=== PATIENT | female | born 1970 | race Caucasian/White ===

== ENCOUNTER 2017-04-13 05:53 | Observation (INO) | payer BC, OTHER ==
[2017-04-04 15:08] VITALS: BMI 26.0
--- NOTE | 2017-04-04 15:36 | PAT Medication Instructions ---
Service Date Apr 04, 2017. Current Home Medication List Cholecalciferol (Vitamin D3), 1 TAB PO Q2D Ibuprofen (Advil), 400 MG PO DAILY PRN for Pain or Fever Lorazepam (Ativan), 1 MG PO DAILY PRN for Anxiety/Agitation Metronidazole (Flagyl), 500 MG PO BID Norethindrone (Aygestin), 5 MG PO QPM Varenicline Tartrate (Chantix), 1 MG PO BID Medication Instructions For Your Scheduled Surgery - Hold the following medications the morning of surgery: Varenicline Tartrate (Chantix), 1 MG PO BID Cholecalciferol (Vitamin D3), 1 TAB PO Q2D Ibuprofen (Advil), 400 MG PO DAILY PRN for Pain or Fever (otherwise okay to continue per surgeon) - Take the following medications the morning of surgery with a sip of water: Lorazepam (Ativan), 1 MG PO DAILY PRN for Anxiety/Agitation (if needed) Metronidazole (Flagyl), 500 MG PO BID - Take the following medications as scheduled the night before surgery: Varenicline Tartrate (Chantix), 1 MG PO BID Norethindrone (Aygestin), 5 MG PO QPM Metronidazole (Flagyl), 500 MG PO BID Lorazepam (Ativan), 1 MG PO DAILY PRN for Anxiety/Agitation (if needed) If you have any questions please call us at [phone] or [phone] or [phone]
[2017-04-04 16:09] LABS: BASO % 0.3 %; BASO ABS # 0.02 K/uL (0-0.2); COMPLETE YES; EOS % 2.2 %; IG% 0.3 %; LYMPH % 33.2 %; LYMPH ABS # 2.54 K/uL (1.2-3.4); MEAN CELL VOLUME 98.3 fL (80-100); MEAN CORPUSCULAR HEMOGLOBIN 35.1 pg (25-34); MEAN CORPUSCULAR HGB CONC 35.8 g/dl (32-36); MEAN PLATELET VOLUME 9.9 fL (7.4-10.4); MONO % 9.8 %; NEUT % 54.2 %; PLATELET COUNT 254 K/uL (130-400); RED BLOOD COUNT 4.07 M/uL (4.2-5.4); WHITE BLOOD COUNT 7.66 K/uL (4.8-10.8)
[2017-04-04 16:16] LABS: BUN/CREATININE RATIO 20.1 (10-20); CALCIUM 8.7 mg/dl (8.5-10.1); CREATININE 0.92 mg/dl (0.60-1.20)
[2017-04-04 16:17] LABS: PROTHROMBIN TIME (PATIENT) 10.3 SECONDS (9.0-12.0)
[2017-04-13] VITALS (8 sets, daily range): BP systolic 107–132; BP diastolic 61–88; PULSE 61–90; TEMP 36.6–37.1; O2SAT 95–100; Ht 162.6 cm; Wt 70.2 kg
[~2017-04-13] VITALS: Ht 162.6 cm; Wt 70.2 kg
[~2017-04-13 05:53] MED LIST: ATV/1 PO; CHOL1TAB46 PO; IBUP-1050 PO; METR-163 PO; NORE5TAB5 PO; VAREPAK PO
[2017-04-13] MEDS ORDERED: LACTATED RINGER'S 1000ML 1,000 ML IV SCH ×2 (06:00)
[2017-04-13] MEDS ORDERED: CEFAZOLIN 2000 MG/60 ML D5W 50 ML IV SCH (06:00)
[2017-04-13] MEDS ORDERED: DEXAMETHASONE SOD INJ 4 MG/ML VIAL ONE (06:26)
[2017-04-13] MEDS ORDERED: ROCURONIUM BROMIDE 10 MG/ML 5 ML VIAL IV ONE ×2 (06:26→08:41)
[2017-04-13] MEDS ORDERED: ONDANSETRON INJ 2 MG/ML 2 ML VIAL ONE (06:26)
[2017-04-13] MEDS ORDERED: PROPOFOL IV EMULSION 10 MG/ML 20 ML VIAL IV ONE (06:26)
[2017-04-13] MEDS ORDERED: LIDOCAINE HCL 2% 2 ML VIAL (20MG/ML) ONE (06:26)
[2017-04-13] MEDS ORDERED: FENTANYL CITRATE INJ 50 MCG/1 ML 2 ML VIAL ONE ×2 (06:26→09:24)
[2017-04-13] MEDS ORDERED: MIDAZOLAM HCL 1 MG/ML 2ML VIAL ONE (06:26)
[2017-04-13] MEDS ORDERED: BUPIVACAINE/EPINEPHRINE 0.5% MPF 1:200,000 10 ML VIAL ONE (07:06)
[2017-04-13] MEDS ORDERED: SULFANILAMIDE 15% CR 120 GM TUBE ONE (07:08)
--- NOTE | 2017-04-13 07:26 | History & Physical Bridge Note ---
H&P Re-Evaluation Bridge Note: I have examined the patient, reviewed the History & Physical and in the interval since the performance of the History & Physical I have noted the following changes of clinical significance: No changes noted
[2017-04-13] MEDS ORDERED: EpHEDrine SULFATE INJ 50 MG/ML AMP IV PRN (08:00)
[2017-04-13] MEDS ORDERED: PHENYLEPHRINE 100MCG/ML 5ML SYR IV PRN (08:00)
[2017-04-13] MEDS ORDERED: METRONIDAZOLE 500MG / NSS IV SCH (08:00)
[2017-04-13] MEDS ORDERED: NURSING VERBAL MED ORDER ONE (08:00)
[2017-04-13] MEDS ORDERED: HYDROmorphone INJ 2 MG/ML SYR/VIAL IV PRN (08:00)
[2017-04-13] MEDS ORDERED: ATROPINE SULFATE 0.1 MG/ML 5ML SYR IV PRN (08:00)
[2017-04-13] MEDS ORDERED: ONDANSETRON INJ 2 MG/ML 2 ML VIAL IV PRN ×2 (08:00→10:00)
[2017-04-13] MEDS ORDERED: HYDROmorphone INJ 2 MG/ML SYR/VIAL ONE (08:14)
[2017-04-13] MEDS ORDERED: NEOSTIGMINE METHYLSULFATE 5 MG/5 ML SYR ONE (09:24)
[2017-04-13] MEDS ORDERED: GLYCOPYRROLATE INJ 0.2 MG/ML VIAL ONE (09:24)
[2017-04-13] MEDS ORDERED: FLOSEAL HEMOSTATIC MATRIX 5ML TOP ONE (09:39)
[2017-04-13] MEDS ORDERED: KETOROLAC TROMETHAMINE 30 MG/ML VIAL ONE (09:43)
[2017-04-13] MEDS ORDERED: BACITRACIN OINT 15 GM TUBE ONE (09:46)
[2017-04-13] MEDS ORDERED: D5W AND LACTATED RINGERS 1,000 ML IV SCH (09:51)
--- NOTE | 2017-04-13 09:58 | [facility] Post Operative Brief Note ---
Immediate Operative Summary Operative Date Apr 13, 2017. Pre-Operative Diagnosis Heavy menstral bleeding; dysmenorrhea, dyspareunia, adenomyosis Post-Operative Diagnosis Same as preop Procedure(s) Performed Exam Under Anesthesia; Transvaginal Hysterectomy; Bilateral Salpingectomy; Dumont Culdeplasty; cystoscopy Surgeon Dr. Perez Information Technology Program Manager Surgeon(s) Dr. Harmon Estimated Blood Loss 100 cc Findings Stage 1-2 uterine prolapse and cystocele Normal uterus, fallopian tubes and ovaries Specimens A: right fallopian tube B: left fallopian tube C: uterus and cervix Drains greenwood 100 ml Anesthesia GETA Complication(s) None Disposition Recovery Room / PACU
[2017-04-13] MEDS ORDERED: BISACODYL 10 MG SUPP PR PRN (10:00)
[2017-04-13] MEDS ORDERED: KETOROLAC TROMETHAMINE 15 MG/ML VIAL IV. PRN (10:00)
[2017-04-13] MEDS ORDERED: PROMETHAZINE HCL INJ 25 MG in SODIUM CHLORIDE 0.9% 50ML 50 ML IV PRN (10:00)
[2017-04-13] MEDS ORDERED: MAGNESIUM HYDROXIDE SUSP 30 ML UDC PO PRN (10:00)
[2017-04-13] MEDS ORDERED: MEPERIDINE HCL 50 MG/ML CARP IV PRN ×2 (10:00)
[2017-04-13] MEDS ORDERED: SENNA 8.6 MG TAB PO PRN (10:00)
[2017-04-13] MEDS ORDERED: MTR600X PO (10:49)
[2017-04-13] MEDS ORDERED: METO-157 PO (10:49)
[2017-04-13] MEDS ORDERED: OXYC-57 PO (10:49)
--- NOTE | 2017-04-13 10:52 | Discharge Instructions ---
Discharge Instructions Date of Service Apr 13, 2017. Admission Reason for Admission: Heavy Periods, Dysmenorrhea Discharge Discharge Diagnosis / Problem: Vaginal hysterectomy, bilateral salpingectomy, Cystoscopy Discharge Goals Goal(s): Routine recovery after surgery Activity Recommendations Activity Limitations: as noted below Lifting Limitations: no more than 10 pounds Exercise/Sports Limitations: until after follow-up appointment May Resume Sexual Activity: after follow-up appointment Shower/Bathe: keep incision dry Driving or Machine Use: ACTIVITY RECOMMENDATIONS: * Avoid tampons, douching, hot tubs, pools, and intercourse until follow up * May shower as usual. * No strenuous activity for 2 weeks. SPECIAL CARE INSTRUCTIONS: Special Diet: * Mild nausea may occur in the immediate post-operative period. * Take clear liquids such as tea, cola or bouillon until all nausea has subsided; you may then resume your normal diet. Special Care: * Light bleeding and vaginal spotting can last from a few days to 3-4 weeks. Call your doctor if bleeding becomes heavier than the heaviest part of your period. * Check your temperature twice a day for one week. If it goes above 100.4 degrees Fahrenheit (38.0 Celsius), notify your doctor. * Call your doctor's office for an appointment for 2 and 6 weeks after your surgery. FOLLOW-UP VISIT: Call your doctor's office for an appointment for 2 and 6 weeks after your surgery. . Current Hospital Diet Patient's current hospital diet: Discharge Diet Recommended Diet: Regular Diet Procedures Procedures Performed: Exam Under Anesthesia; Transvaginal Hysterectomy; Bilateral Salpingectomy; Dumont Culdeplasty; cystoscopy Pending Studies Studies pending at discharge: no Medical Emergencies . Who to Call and When: Medical Emergencies: If at any time you feel your situation is an emergency, please call 911 immediately. . Non-Emergent Contact Non-Emergency issues call your: Surgeon Call Non-Emergent contact if: temperature is above 100.5, your pain is not controlled, your pain is worsening, wound has increased drainage, wound has increased redness, wound has increased pain . . "Provider Documentation" section prepared by Vahid Perez. . VTE Core Measure Inpt VTE Proph given/why not?: Treatment not indicated
--- NOTE | 2017-04-13 11:13 | OB/GYN Progress Note ---
LAW FIRM ADMINISTRATOR Progress Note Date of Service: Apr 13, 2017. Postop check Patient is seen and examined Feels well, no complaints Pain is under control with meds No CP/ SOB/ Dizziness/ N&V/ VB/ Leg pain Not OOB yet Hungry and thirsty and likes to drink Explained about the surgery and findings Vital Signs Past 12 Hours Date Time Temp Pulse Resp B/P (MAP) Pulse Ox O2 Delivery O2 Flow Rate FiO2 04/13/17 10:26 36.2 57 16 113/70 (87) 100 Nasal Cannula 2 04/13/17 10:21 113/70 04/13/17 10:17 74 19 04/13/17 10:17 74 19 100 04/13/17 10:16 132/76 04/13/17 10:12 71 14 100 04/13/17 10:12 73 14 04/13/17 10:10 115/73 04/13/17 10:07 74 17 04/13/17 10:07 75 17 99 04/13/17 10:06 115/73 04/13/17 10:02 36.2 82 16 123/78 99 Mask 10 04/13/17 10:02 83 16 123/78 99 04/13/17 10:02 83 16 04/13/17 06:18 36.8 82 16 132/75 (94) 96 Room Air PE: General: Alert, orientedx3, NAD, Sleepy CVS: S1S2 RRR Lungs: CTAB Abd: soft, NT, ND, BS+ No VB, packing dry, greenwood in Ext: NT, no edema, SCD's on AP: 47 yo female s/p EUA, TVH, Bl salpingectomy, Cytoscopy , pod#0 VSS Afebrile doing well Low UOP Will start with 500 ml bolus Trigeminies on ECG: called medicine for consult Continue to monitor closely D/C greenwood and packing at 6 am Anticipate DC tomorrow
[2017-04-13] MEDS ORDERED: LACTATED RINGER'S 1000ML 500 ML IV SCH ×2 (11:15→11:30)
--- NOTE | 2017-04-13 11:29 | OPERATIVE REPORT ---
DATE OF OPERATION: 04/13/2017 PREOPERATIVE DIAGNOSIS: The patient is a 47-year-old G3, P3-0-0-3 female with a long history of heavy and irregular periods, dysmenorrhea, dyspareunia. Ultrasound suggesting adenomyosis. POSTOPERATIVE DIAGNOSIS: Same. PROCEDURES: Examination under anesthesia, transvaginal hysterectomy, bilateral salpingectomy, Dumont culdoplasty and cystoscopy. SURGEON: Dr. Perez. TRAVEL ASSISTANT: Dr. Harmon. ESTIMATED BLOOD LOSS: 100. SPECIMENS: Uterus, cervix and fallopian tubes. DRAINS: Sullivan drained 100 mL of urine. ANESTHESIA: General endotracheal. COMPLICATIONS: None. FINDINGS: Exam under anesthesia revealed anteverted normal size uterus, nonpalpable adnexa, stage I to II uterine prolapse and cystocele, normal uterus, fallopian tubes and ovaries. PROCEDURE: The patient was taken to the operating room where general anesthesia was given without difficulty. She was placed in dorsal lithotomy position in [facility]. She was prepared and draped in usual sterile fashion. The bladder was emptied with a straight catheter and examination under anesthesia was done with the above findings. A weighted speculum was placed in the patient's vagina and the bladder was retracted with Koch Valve. Cervix was visualized, grasped with single tooth tenaculum. It was injected with lidocaine with epinephrine circumferentially. The cervix was incised with the tip of Bovie in a circular fashion, dissecting the vaginal mucosa from cervix. The extra tissues were cut between the vagina and cervix with Orellana scissors and the vagina was dissected off superiorly from the cervix with the fingers bluntly. The posterior cul-de-sac was identified, grasped with pickups, entered sharply with Metzenbaum scissors and the long weighted speculum was placed in the posterior cul-de-sac. Sacrouterine ligaments were identified, grasped with Diaz clamps and cut and suture-ligated with 0 Vicryl on both sides and then cardinal ligaments were identified, grasped with Diaz clamps, cut and suture-ligated with 0 Vicryl on both sides. Then the bladder was dissected off from the anterior uterine wall and the vesicouterine peritoneum was identified, entered sharply with Metzenbaum scissors and the anterior cul-de-sac was entered and the bladder was retracted with a straight tractor. Uterine arteries were held with Diaz clamps, cut and suture-ligated x2 on both sides. Then the broad ligament was held with the LigaSure device, coagulated and cut in 2 steps on both sides and then uterine cornua were held with the LigaSure device, coagulated and cut. The uterus and cervix were removed and then the right fallopian tube was identified, grasped with Phoenix clamps. The pelvis was packed with sponges to avoid bowels from protruding. The mesosalpinx was held with the LigaSure device, coagulated and cut. The right fallopian tube was sent to pathology. The 2 pedicles were hemostatic and the left fallopian tube was identified, grasped with Phoenix clamps, again with the LigaSure device, coagulated and cut and sent to pathology. The pedicles on both sides were checked to be hemostatic. The sponge was removed. Then 0 Vicryl suture was entered from posterior vagina to the middle of the cul-de-sac, the suture was continued on the cul-de-sac peritoneum towards the sacrouterine ligaments bilaterally and it was brought to the middle, came out from the external vagina next to the first entrance spot. The Dumont suture was held with hemostat to be tied later. All the pedicles were checked again to be hemostatic and ovaries were visualized to be normal on both sides. The vaginal cuff was repaired with 0 Vicryl in a running locked fashion bringing the vaginal mucosa together and FloSeal was injected on the vaginal cuff inside to prevent for bleeding for later and excellent hemostasis was achieved. The Dumont suture was tied bringing the vaginal apex up into the pelvis and cut. The patient was given IV methylene blue and cystoscopy was done. The bladder mucosa were visualized to be intact. No injury noted. Both ureteral jets were seen ejecting blue dyed urine on both sides. Cystoscopy was ended. Bladder was drained. It was replaced with a Sullivan catheter and the vagina was packed with a small vaginal pack bacitracin on it and the procedure was ended. The patient tolerated the procedure well. Sponge, lap, needle and instrument counts were correct x3. She was given 2 grams of cefazolin and 500 mg of Flagyl before surgery. No complications happened. I was and Dr. Harmon was present during whole procedure. She was taken to recovery room in stable condition. I attest to the content of the Intraoperative Record and any orders documented therein. Any exceptions are noted below. MTDD
[2017-04-13] MEDS ORDERED: IV FLUIDS COMPLETED PRN (12:00)
--- NOTE | 2017-04-13 12:34 | Anesthesiology Progress Note ---
Anesthesia Post Op Note Date & Time Apr 13, 2017 at 12:34 Vital Signs Pain Intensity: 0 Vital Signs Past 12 Hours Date Time Temp Pulse Resp B/P (MAP) Pulse Ox O2 Delivery O2 Flow Rate FiO2 04/13/17 11:26 36.8 61 18 118/61 (80) 97 Room Air 04/13/17 10:54 36.6 69 18 126/70 (88) 97 Room Air 04/13/17 10:26 36.2 57 16 113/70 (87) 100 Nasal Cannula 2 04/13/17 10:21 113/70 04/13/17 10:17 74 19 04/13/17 10:17 74 19 100 04/13/17 10:16 132/76 04/13/17 10:12 71 14 100 04/13/17 10:12 73 14 04/13/17 10:10 115/73 04/13/17 10:07 74 17 04/13/17 10:07 75 17 99 04/13/17 10:06 115/73 04/13/17 10:02 36.2 82 16 123/78 99 Mask 10 04/13/17 10:02 83 16 123/78 99 04/13/17 10:02 83 16 04/13/17 06:18 36.8 82 16 132/75 (94) 96 Room Air Notes Mental Status: alert / awake / arousable, participated in evaluation Pt Amnestic to Procedure: Yes Nausea / Vomiting: adequately controlled Pain: adequately controlled Airway Patency, RR, SpO2: stable & adequate BP & HR: stable & adequate Hydration State: stable & adequate Anesthetic Complications: no major complications apparent
[2017-04-13 14:33] LABS: HEMATOCRIT 36.9 % (37-47); MEAN CELL VOLUME 98.9 fL (80-100); MEAN CORPUSCULAR HEMOGLOBIN 34.3 pg (25-34); MEAN CORPUSCULAR HGB CONC 34.7 g/dl (32-36); MEAN PLATELET VOLUME 10.2 fL (7.4-10.4); PLATELET COUNT 237 K/uL (130-400); RED BLOOD COUNT 3.73 M/uL (4.2-5.4); WHITE BLOOD COUNT 13.48 K/uL (4.8-10.8)
[2017-04-13 14:52] LABS: BUN/CREATININE RATIO 11.1 (10-20); CALCIUM 7.6 mg/dl (8.5-10.1); CREATININE 0.93 mg/dl (0.60-1.20); MAGNESIUM 2.2 mg/dl (1.8-2.4); POTASSIUM 4.4 mmol/L (3.5-5.1)
[2017-04-13] MEDS: NICOTINE 14 MG/24 HR TDSY TD SCH (15:25)
[2017-04-13] MEDS: OXYCODONE/ACETAMINOPHEN 5-325 TAB PO PRN (15:26)
[2017-04-13] MEDS: IBUPROFEN 600 MG TAB PO PRN ×2 (15:26→20:22)
[2017-04-13] MEDS: CEFAZOLIN IV 2,000 MG in DEXTROSE 5% 50ML 50 ML IV SCH ×2 (15:26→23:16)
[2017-04-13] MEDS: METRONIDAZOLE / NSS 500 MG in PREMIXED NSS 100 ML IV SCH (16:35)
--- NOTE | 2017-04-13 16:38 | Medical Consult ---
Consultation Date of Consultation: Apr 13, 2017. Attending Physician: Canan. Perez MD Reason for Consultation: Trigeminy History of Present Illness 47 year old female who is s/p transvaginal hysterectomy and BL salpingectomy today by Dr. Perez. This was a planned procedure today for irregular and heavy menstrual bleeding. Post operatively patient was noted to have periods of trigeminy. Post operatively the patient is doing well. She reports her pain is well controlled. She denies chest pain, palpitations, or shortness of breath. No lightheadedness, dizziness, or diaphoresis. She denies nausea. She is tolerating her lunch well. Past Medical/Surgical History Medical Problems: (1) Anxiety Status: Chronic Surgical Problems: (1) S/P tonsillectomy and adenoidectomy Status: Chronic (2) [place] teeth extracted Status: Chronic Family History Diabetes mellitus GRANDFATHER FH: prostate cancer FATHER Social History Smoking Status: Current Every Day Smoker Alcohol Use: occasionally Allergies Coded Allergies: No Known Allergies (Unverified , 04/13/17) Home Medications Advil (Ibuprofen) 200 Mg Tab 400 Mg PO DAILY PRN Vitamin D3 (Cholecalciferol) 5,000 Unit Tab 1 Tab PO Q2D Chantix (Varenicline Tartrate) 1 Dann Dann 1 Mg PO BID 28 Days Ativan (Lorazepam) 1 Mg Tab 1 Mg PO DAILY PRN Aygestin (Norethindrone Acetate) 5 Mg Tab 5 Mg PO QPM Flagyl (Metronidazole) 500 Mg Tab 500 Mg PO BID Current Inpatient Medications Current Inpatient Medications Medications (Trade) Dose Ordered Sig/Heather Route Start Time Stop Time Status Last Admin Dose Admin Dextrose/Lactated Ringer's 1,000 ml @ 125 mls/hr Q8H IV 04/13/17 09:51 05/13/17 09:50 Ketorolac Tromethamine (Toradol Inj) 15 mg Q6H PRN IV. 04/13/17 10:00 04/18/17 09:59 Meperidine HCl (Demerol Inj) 50 mg Q4H PRN IV 04/13/17 10:00 04/27/17 09:59 Meperidine HCl (Demerol Inj) 75 mg Q4H PRN IV 04/13/17 10:00 04/27/17 09:59 Oxycodone/ Acetaminophen (Percocet 5-325mg Tab) 1 tab for pain scale 1-5 2 t... Q4H PRN PO 04/13/17 10:00 04/27/17 09:59 04/13/17 15:26 1 TAB Ibuprofen (Motrin Tab) 600 mg Q4H PRN PO 04/13/17 10:00 05/13/17 09:59 04/13/17 15:26 600 MG Ondansetron HCl (Zofran Inj) 4 mg Q4H PRN IV 04/13/17 10:00 05/13/17 09:59 Promethazine HCl 25 mg/Sodium Chloride 51 ml @ 204 mls/hr Q4H PRN IV 04/13/17 10:00 05/13/17 09:59 Bisacodyl (Dulcolax Supp) [address] 04/13/17 10:00 05/13/17 09:59 Magnesium Hydroxide (Milk Of Magnesia Susp) 30 ml HS PRN PO 04/13/17 10:00 05/13/17 09:59 Senna (Senokot Tab) 17.2 mg HS PRN PO 04/13/17 10:00 05/13/17 09:59 Metronidazole 500 mg/Prmx 100 ml @ 100 mls/hr Q8H IV 04/13/17 16:00 04/23/17 15:29 Cefazolin Sodium 2000 mg/Dextrose 60 ml @ 100 mls/hr Q8H IV 04/13/17 15:00 04/23/17 14:59 04/13/17 15:26 100 MLS/HR Miscellaneous (Iv Fluids Completed) 1 ea PRN PRN N/A 04/13/17 12:00 04/13/18 11:59 Nicotine (Nicoderm Cq 14MG Patch) 1 patch QAM TD 04/13/17 13:45 05/13/17 13:44 04/13/17 15:25 1 PATCH Miscellaneous (Remove Nicoderm Patch) 1 ea HS N/A 04/13/17 21:00 05/13/17 20:59 Review of Systems ROS per HPI, all other systems reviewed and negative Physical Exam Date Time Temp Pulse Resp B/P (MAP) Pulse Ox O2 Delivery O2 Flow Rate FiO2 04/13/17 15:35 Room Air 04/13/17 13:54 37.1 75 18 117/68 (84) 98 Room Air 04/13/17 12:54 36.6 90 18 132/88 (103) 98 Room Air 04/13/17 11:26 36.8 61 18 118/61 (80) 97 Room Air 04/13/17 11:10 99 Nasal Cannula 1.0 04/13/17 11:10 100 Nasal Cannula 2.0 04/13/17 10:54 36.6 69 18 126/70 (88) 97 Room Air 04/13/17 10:26 36.2 57 16 113/70 (87) 100 Nasal Cannula 2 04/13/17 10:21 113/70 04/13/17 10:17 74 19 04/13/17 10:17 74 19 100 04/13/17 10:16 132/76 04/13/17 10:12 71 14 100 04/13/17 10:12 73 14 04/13/17 10:10 115/73 04/13/17 10:07 74 17 04/13/17 10:07 75 17 99 04/13/17 10:06 115/73 04/13/17 10:02 36.2 82 16 123/78 99 Mask 10 04/13/17 10:02 83 16 123/78 99 04/13/17 10:02 83 16 04/13/17 06:18 36.8 82 16 132/75 (94) 96 Room Air General Appearance: no apparent distress Head: normocephalic, atraumatic Eyes: normal inspection, sclerae normal ENT: hearing grossly normal Neck: supple, no JVD Respiratory/Chest: lungs clear, normal breath sounds, no respiratory distress Cardiovascular: regular rate, rhythm, no edema, normal peripheral pulses Abdomen/GI: normal bowel sounds, non tender, soft Extremities/Musculoskelatal: normal inspection, no calf tenderness Neurologic/Psych: no motor/sensory deficits, alert, normal mood/affect, oriented x 3 Skin: normal color, warm/dry Laboratory Results Last 24 Hours Test 04/13/17 06:42 04/13/17 14:06 Bedside Urine Test NEG White Blood Count 13.48 K/uL Red Blood Count 3.73 M/uL Hemoglobin 12.8 g/dL Hematocrit 36.9 % Mean Corpuscular Volume 98.9 fL Mean Corpuscular Hemoglobin 34.3 pg Mean Corpuscular Hemoglobin Concent 34.7 g/dl RDW Standard Deviation 47.9 fL RDW Coefficient of Variation 13.2 % Platelet Count 237 K/uL Mean Platelet Volume 10.2 fL Sodium Level 133 mmol/L Potassium Level 4.4 mmol/L Chloride Level 104 mmol/L Carbon Dioxide Level 24 mmol/L Anion Gap 5.0 mmol/L Blood Urea Nitrogen 10 mg/dl Creatinine 0.93 mg/dl Est Creatinine Clear Calc Drug Dose 71.9 ml/min Estimated GFR () 84.8 Estimated GFR (Non- 73.2 BUN/Creatinine Ratio 11.1 Random Glucose 254 mg/dl Calcium Level 7.6 mg/dl Magnesium Level 2.2 mg/dl Assessment & Plan S/P TRANSVAGINAL HYSTERECTOMY, BL SALPINGECTOMY - POD#0 - management as per gyne EPISODES OF TRIGEMINY - patient asymptomatic - K+ and Mg+ WNL - EKG shows a single PVC - if patient becomes symptomatic, would obtain an EKG; otherwise, outpatient follow up with possible Holter if she develops symptoms TOBACCO USE - patient counseled regarding tobacco cessation - nicotine patch ordered DVT PROPHYLAXIS - deferred to gyne Thank you for this consultation. We will follow the patient with you during their hospital stay. You can reach a member of the [facility] Hospitalist Team 26/02 via pager @ [phone]. ADDENDUM: 47 year old presents for a hysterectomy. Noted to have trigeminy on rhythm strip. EKG shows an episode of PVCs. Asymptomatic as patient is not short of breath, no chest pain, no palpitations. checked electrolytes and they are wnl. EKG if symptoms develop; otherwise, no further management needed at this time.
[2017-04-13 19:42] LABS: HEMATOCRIT 34.5 % (37-47)
[2017-04-14 00:25] VITALS: BP 125/67; PULSE 80; TEMP 37.3; O2SAT 94
[2017-04-14] MEDS: OXYCODONE/ACETAMINOPHEN 5-325 TAB PO PRN (00:27)
[2017-04-14] MEDS: METRONIDAZOLE / NSS 500 MG in PREMIXED NSS 100 ML IV SCH ×2 (00:28→07:31)
[2017-04-14] MEDS ORDERED: NURSING VERBAL MED ORDER ONE (04:45)
[2017-04-14 05:30] VITALS: BP 107/69; PULSE 87; TEMP 37.2; O2SAT 96
[2017-04-14] MEDS: IBUPROFEN 600 MG TAB PO PRN ×2 (05:39→09:36)
[2017-04-14] MEDS: CEFAZOLIN IV 2,000 MG in DEXTROSE 5% 50ML 50 ML IV SCH (06:30)
[2017-04-14 08:00] VITALS: BP 113/72; PULSE 65; TEMP 37.1; O2SAT 96
[2017-04-14 08:11] LABS: BASO % 0.1 %; BASO ABS # 0.01 K/uL (0-0.2); COMPLETE YES; EOS % 0.4 %; HEMATOCRIT 35.1 % (37-47); IG% 0.2 %; LYMPH % 27.1 %; LYMPH ABS # 2.67 K/uL (1.2-3.4); MEAN CORPUSCULAR HEMOGLOBIN 33.6 pg (25-34); MEAN CORPUSCULAR HGB CONC 33.6 g/dl (32-36); MEAN PLATELET VOLUME 9.9 fL (7.4-10.4); NEUT % 65.2 %; PLATELET COUNT 210 K/uL (130-400); RED BLOOD COUNT 3.51 M/uL (4.2-5.4); WHITE BLOOD COUNT 9.84 K/uL (4.8-10.8)
[2017-04-14] MEDS: NICOTINE 14 MG/24 HR TDSY TD SCH (08:39)
[2017-04-14 08:48] LABS: BUN/CREATININE RATIO 8.5 (10-20); CREATININE 0.93 mg/dl (0.60-1.20); POTASSIUM 3.8 mmol/L (3.5-5.1)
[2017-04-14 09:18] VITALS: BP 113/72; PULSE 65; TEMP 37.1; O2SAT 96
--- NOTE | 2017-04-18 15:28 | DISCHARGE SUMMARY ---
DETAILS OF ADMISSION: The patient is a 47-year-old -0-0-3 female with a long history of heavy and irregular periods, dysmenorrhea, dyspareunia and adenomyosis. She desired to have a hysterectomy and admitted for transvaginal hysterectomy, bilateral salpingectomy and Dumont culdoplasty and cystoscopy. See dictated op note for details. She had an uncomplicated surgery on April 13 in the morning. EBL was 100 and she was recovered in the recovery room and brought up to the fourth floor. She was feeling well, and pain was under control with medication. No chest pain, shortness of breath. Her vital signs were stable. In recovery room, she was found to have trigeminy on the EKG, but she was asymptomatic and I called medicine for a consultation. See their note for details. They obtained an EKG which had single PVC and electrolytes, potassium and magnesium were normal. No further recommendations were made unless she becomes symptomatic. they counseled the patient for tobacco cessation and recommended to follow up by her primary care as an outpatient. On postop day #1, the patient was doing well. Vital signs stable, afebrile, ambulating, tolerating a regular diet and her vaginal packing was removed and the Sullivan was discontinued. She was able to get up and use the bathroom and she wanted to go home. She was discharged home on postop day #[address] on [address] Harmon. Discharge instructions were given when to call, prescriptions were written for pain and nausea. All questions were answered. [place]
== END 2017-04-14 09:45 | disposition home or self-care (01) ==
LOC: C.ACU 05:53 → ENRESERV 10:27 → C.MS4N 10:55
PROVIDERS: ADMIT Obstetrics & Gynecology; ATTEND Obstetrics & Gynecology
DX: N80.0 Endometriosis of uterus (principal); D25.0 Submucous leiomyoma of uterus; N73.6 Female pelvic peritoneal adhesions (postinfective); N81.4 Uterovaginal prolapse, unspecified; F43.21 Adjustment disorder with depressed mood; F41.1 Generalized anxiety disorder; N39.3 Stress incontinence (female) (male); E55.9 Vitamin D deficiency, unspecified; F17.210 Nicotine dependence, cigarettes, uncomplicated; Z79.899 Other long term (current) drug therapy